=== PATIENT | male | born 1980 | race Caucasian/White ===

== ENCOUNTER 2022-11-28 01:56 | Emergency (ER) | payer OTHER ==
[2022-11-28 02:06] VITALS: BP 130/83; PULSE 74; RESP 16; TEMP 98; BMI 32.5
[2022-11-28] MEDS ORDERED: ACETAMINOPHEN 500 MG TABLET (FP) PO ONE (02:32)
[2022-11-28] MEDS ORDERED: ACETAMINOPHEN 325 MG TABLET (FP) ONE (02:34)
[2022-11-28] MEDS ORDERED: KETOROLAC TROMETHAMINE 30 MG/1 ML VIAL IM ONE (04:06)
[2022-11-28] MEDS ORDERED: KETOROLAC TROMETHAMINE 15 MG/ML VIAL ONE (04:13)
== END 2022-11-28 05:47 | disposition home or self-care (01) ==
LOC: JER 01:56
PROC: 3E0233Z Introduction of Anti-inflammatory into Muscle, Percutaneous Approach (ICD-10-PCS; principal; 2022-11-28)
PROC: 2W3RX1Z Immobilization of Left Lower Leg using Splint (ICD-10-PCS; 2022-11-28)
DX: S92.352A Displaced fracture of fifth metatarsal bone, left foot, initial encounter for closed fracture (principal); M79.672 Pain in left foot; M79.89 Other specified soft tissue disorders; V00.181A Fall from other rolling-type pedestrian conveyance, initial encounter; Y93.I1 Activity, roller coaster riding; Y92.9 Unspecified place or not applicable
CPT/HCPCS: 73610-TC-LT-FY; 73630-TC-LT; 99284-25